=== PATIENT | female | born 1990 | race Hispanic/Latino ===

== ENCOUNTER 2019-02-28 11:51 | Emergency (ER) | payer BC, OTHER ==
[~2019-02-28] VITALS: Ht 170.2 cm; Wt 87.7 kg
[~2019-02-28 11:51] MED LIST: METRONIDAZOLE500 MG PO
[2019-02-28] MEDS ORDERED: FLAGYL500 MG PO (13:17)
[2019-02-28] MEDS ORDERED: DIFLUCAN150 MG PO (13:17)
== END 2019-02-28 12:45 | disposition home or self-care (01) ==
LOC: ED 11:51
DX: B37.3 Candidiasis of vulva and vagina (principal)

== ENCOUNTER 2019-02-28 12:50 | Emergency (ER) | payer OTHER ==
[~2019-02-28] VITALS: Ht 170.2 cm; Wt 87.5 kg
--- OUTSIDE RECORDS SUMMARY | 2019-02-28 12:54 | XMS ---
PreManage Notification: JUNE ESPINO [employer]r Events No recent Security Events currently on file CRITERIA MET - [facility] - 2 Visits in 30 Days CARE PROVIDERS There are no care providers on record at this time. Margaret has no Care Guidelines for this patient. Sade VISIT COUNT (12 MO.) [address] [facility] [address] [facility] TOTAL 2 NOTE: Visits indicate total known visits. ED/C VISIT TRACKING (12 MO.) 02/28/2019 12:[address] [facility] [address] [facility] [place] TYPE: Emergency COMPLAINT: - STD CHECK 02/28/2019 11:52 [facility] [place] TYPE: Emergency COMPLAINT: - STD CHECK INPATIENT VISIT TRACKING (12 MO.) No inpatient visits to display in this time frame [email or web address]
[2019-02-28] MEDS ORDERED: FLAGYL500 MG PO (13:17)
[2019-02-28] MEDS ORDERED: DIFLUCAN150 MG PO (13:17)
== END 2019-02-28 13:48 | disposition home or self-care (01) ==
LOC: ED 12:50
DX: B37.3 Candidiasis of vulva and vagina (principal)
CPT/HCPCS: 87491; 87591; 96372; 99283-25; J0696

== ENCOUNTER 2024-06-16 16:29 | Emergency (ER) | payer OTHER ==
[~2024-06-16] VITALS: Ht 170.2 cm; Wt 101.7 kg
[2024-06-16] MEDS ORDERED: ondansetron HCL 4 MG/2 ML VIAL IV ONE (17:15)
[2024-06-16 17:20] LABS: BASOPHILS 0.8 % (0-2); EOSINOPHILS 1.2 % (0-6); HEMATOCRIT 39.3 % (35.0-50.0); HEMOGLOBIN 13.4 g/dL (12.0-18.0); LYMPHOCYTES 45.8 % (24-44); MCH 29.4 (27-36); MCHC 34.2 g/dl (30-36); MCV 85.9 fl (81-99); MONOCYTES 8.9 % (0-12); NEUTROPHILS 43.3 % (39-80); PLATELET COUNT 214 K/uL (140-440); RBC 4.57 M/ul (4.3-5.7); RDW 12.8 (10.5-15.0)
[2024-06-16 17:41] LABS: BILIRUBIN, URINE NEGATIVE (negative); BLOOD/HGB, URINE LARGE (Negative); KETONE, URINE NEGATIVE (Negative); LEUK ESTERASE, URINE NEGATIVE (negative); NITRITE, URINE NEGATIVE (negative)
[2024-06-16 17:42] LABS: ALBUMIN/GLOBULIN RATIO 0.95 (1.1-2.4); ANION GAP 14.8 (7-21); BILIRUBIN, TOTAL 0.4 ng/dL (0.2-1.0); BUN/CREATININE RATIO 11.62 (6.0-28.6); CALCIUM 9.4 mg/dL (8.5-10.1); CREATININE, SERUM 0.86 mg/dL (0.55-1.02); MAGNESIUM 2.1 mg/dL (1.8-2.4); POTASSIUM 3.8 mmol/L (3.5-5.1); PROTEIN, TOTAL 8.2 g/dL (6.4-8.2)
[2024-06-16 17:47] LABS: EPITHELIAL CELLS, URINE SQUAMOUS 2+ /lpf (0-1+)
[2024-06-16 17:48] LABS: BACTERIA, URINE NONE SEEN /hpf (negative); CASTS, URINE NONE SEEN \\lpf; COLLECTION TYPE, URINE CLEAN CATCH; CRYSTALS, URINE NONE SEEN (0-1+); REFLEX CULTURE, URINE No (No)
[2024-06-16] MEDS ORDERED: PANTOPRAZOLE SODIUM 40 MG TABEC PO ONE (19:15)
[2024-06-16] MEDS ORDERED: DICYCLOMINE HCL 10 MG CAP PO ONE (19:15)
[2024-06-16 19:31] VITALS: BP 111/61
== END 2024-06-16 19:30 | disposition home or self-care (01) ==
LOC: ED 16:29
PROVIDERS: Emergency Medicine
DX: R10.10 Upper abdominal pain, unspecified (principal)
CPT/HCPCS: 36415; 76705; 80053; 81001; 83690; 83735; 84703; 85025; 96374; 99284-25; A9270; J2405

== ENCOUNTER 2025-09-07 18:46 | Emergency (ER) | payer OTHER ==
[~2025-09-07] VITALS: Ht 170.2 cm; Wt 99.7 kg
[~2025-09-07 18:46] MED LIST changes: +DICYCLOMINE HCL20 MG PO; +DIFLUCAN150 MG PO; +FLAGYL500 MG PO; +ONDANSETRON ODT8 MG PO
[2025-09-07 20:50] VITALS: BP 134/75
== END 2025-09-07 20:50 | disposition left against medical advice (07) ==
LOC: ED 18:46
DX: Z53.21 Procedure and treatment not carried out due to patient leaving prior to being seen by health care provider (principal)